=== PATIENT | male | born 1965 | race Caucasian/White ===

== ENCOUNTER 2023-08-28 15:56 | Emergency (ER) | payer OTHER ==
[~2023-08-28] VITALS: Ht 175.3 cm; Wt 124.7 kg
[2023-08-28] MEDS ORDERED: NEURONTIN300 MG PO (18:47)
[2023-08-28] MEDS ORDERED: KETOROLAC TROMETHAMINE 30 MG/ML VIAL IM STA (19:22)
[2023-08-28] MEDS ORDERED: DEXAMETHASONE SOD PHOS 10 MG/1 ML VIAL IM ONE (19:30)
[2023-08-28 19:32] VITALS: O2SAT 100
== END 2023-08-28 19:38 | disposition home or self-care (01) ==
LOC: ER 16:07
DX: M79.674 Pain in right toe(s) (principal); E11.9 Type 2 diabetes mellitus without complications; I50.9 Heart failure, unspecified; M10.9 Gout, unspecified; Z86.718 Personal history of other venous thrombosis and embolism; Z95.810 Presence of automatic (implantable) cardiac defibrillator
CPT/HCPCS: 73630; 93925; 99283; J1100; J1885